=== PATIENT | male | born 1965 | race Caucasian/White ===

== ENCOUNTER → 2017-02-02 | Outpatient (CLI) | payer BC ==
[~2017-02-02] MED LIST: NS 100 ML IV 100 ML IV ONE
[2017-02-02 12:03] LABS: CREATININE 1.04 mg/dL (0.70-1.30)
--- NOTE | 2017-02-02 14:00 | CT ---
HISTORY: GI bleed. Study: CT abdomen with contrast Comparison: None. Technique: Multiple axial images of the abdomen after the administration of IV contrast. Dose reduction techni ques including Automated Exposure Control (AEC) and adjustment of mA and kV were utilized. Findings: 5 mm left lower lobe pulmonary nodule (series 4, image 11). Calcified left hilar lymph node consiste nt with old granulomatous disease. Otherwise, the visualized portions of the lung bases are unremark able. There is a heterogeneous hypodense 3.6 x 3.2 cm right liver lobe lesion with internal Hounsfie ld units of 38. Suggestion of some centripetal puddling. This may represent a benign liver hemangiom a, but is indeterminate. Several sub cm and too small to characterize hypodense lesions within the s pleen. Hepatosplenomegaly. There is recannulization of the umbilical vein. Splenic and gastroesophag eal varices. Splenorenal shunting is also seen. The portal vein appears patent . The splenic vein ap pears normal. A small amount of free fluid is seen about the right liver edge. The right liver edge also demonstrates a slightly nodular appearance. The pancreas, kidneys, and adrenal glands are unrem arkable in their CT appearance. The gallbladder is surgically absent. No significant mesenteric lym phadenopathy or stranding can be observed. No other significant free fluid or free air is seen with in the abdomen. Fat containing umbilical hernia. The visualized large and small bowel appear normal . The osseous structures appear normal for age. IMPRESSION: 1. No CT evidence of acute abdominal pathology. 2. 3.6 cm indeterminate right liver lobe lesion as above. Recommend dedicated [address] for f urther characterization. 3. 5 mm left lower lobe pulmonary nodule. Recommend dedicated CT of the chest for further characteri zation. 4. Constellation of findings likely representing portal hypertension secondary to cirrhosis of the l iver. Reported By:
== END ==
LOC: RAD 11:05
PROVIDERS: ATTEND Internal Medicine Gastroenterology
DX: K92.2 Gastrointestinal hemorrhage, unspecified (principal); R91.1 Solitary pulmonary nodule
CPT/HCPCS: 36415; 74160; 82565; 84520; A4222

== ENCOUNTER → 2017-08-31 | Outpatient (CLI) | payer BC ==
--- NOTE | 2017-08-31 18:28 | US ---
History: Cirrhosis Study: Ultrasound of the abdomen Comparison: CT abdomen dated February 02, 2017 Findings: The right lobe of the liver measures 8 x 6.9 cm on the left lobe measures 10 x 7 x 6.5 cm w ithout focal mass. There is appropriate flow in the portal and hepatic veins. There is no abnormal di stention of the portal vein demonstrated. The spleen measures 19 x 10 x 7 cm. The gallbladder surgically absent and the common hepatic duct measures 5 mm. The right kidney measures 10 x 5.7 x 4 cm with cortical thickness of 1.8 cm. The left kidney measures 11 x 5.7 x 6 cm with cortical thickness of 1.9 cm. There is no hydronephrosis or mass. The pancreas is obscured. The aorta is obscured by gas. No ascites is demonstrated. Impression: Splenomegaly, otherwise unremarkable status post cholecystectomy. Reported By:
== END ==
LOC: RAD 09:03
PROVIDERS: ATTEND Internal Medicine Gastroenterology
DX: Z87.19 Personal history of other diseases of the digestive system (principal); R16.1 Splenomegaly, not elsewhere classified
CPT/HCPCS: 76700